=== PATIENT | female | born 1980 | race Caucasian/White ===

== ENCOUNTER → 2016-12-29 | Outpatient (REF) ==
[~2016-12-29] MED LIST: IBU600 MG PO; PERCOCET 325 MG1 TA2 PO
== END ==
LOC: WSOH 08:12
DX: Z02.89 Encounter for other administrative examinations (principal)

== ENCOUNTER 2017-03-19 16:50 | Emergency (ER) | payer BC ==
[~2017-03-19] VITALS: Ht 175.3 cm; Wt 59.1 kg
[2017-03-19 16:52] VITALS: BP 117/70; TEMP 99.1
[2017-03-19 19:13] VITALS: PULSE 66
== END 2017-03-19 19:14 | disposition home or self-care (01) ==
LOC: COL.ER 16:50
DX: G43.909 Migraine, unspecified, not intractable, without status migrainosus (principal)
CPT/HCPCS: J1100; J1200; J1885; J2550; J2765; J7030

== ENCOUNTER 2018-05-18 10:16 | Emergency (ER) | payer BC ==
[~2018-05-18] VITALS: Ht 175.3 cm; Wt 59.1 kg
[2018-05-18 10:50] VITALS: BP 115/59; TEMP 98.4
[2018-05-18 11:24] LABS: COLLECTION METHOD CLEAN CATCH
[2018-05-18 11:54] LABS: MUCOUS Present /lpf; URINE BACTERIA Rare /hpf; URINE RBC 0-2 /hpf
[2018-05-18 11:55] LABS: PH 6 (5-8); URINE APPEARANCE Hazy; URINE BILIRUBIN Negative (NEGATIVE); URINE BLOOD Negative (NEGATIVE); URINE COLOR Yellow; URINE GLUCOSE Negative (NEGATIVE); URINE KETONE Negative (NEGATIVE); URINE LEUKOCYTE ESTERASE Negative (NEGATIVE); URINE NITRATE Negative (NEGATIVE); URINE PROTEIN(semi-quant) Negative (NEGATIVE); URINE UROBILINOGEN Negative (NEGATIVE)
[2018-05-18 13:50] VITALS: PULSE 72
== END 2018-05-18 13:56 | disposition home or self-care (01) ==
LOC: COL.ER 10:16
PROVIDERS: Physician Assistant
DX: O21.9 Vomiting of pregnancy, unspecified (principal); O26.891 Other specified pregnancy related conditions, first trimester; E86.0 Dehydration; Z3A.11 11 weeks gestation of pregnancy
CPT/HCPCS: J2405; J7030

== ENCOUNTER 2018-11-28 16:51 | Inpatient (IN) | payer BC ==
[~2018-11-28] VITALS: Ht 175.3 cm; Wt 75.5 kg
[2018-11-28] VITALS (25 sets, daily range): BP systolic 80–129; BP diastolic 41–74; PULSE 71–130; TEMP 97.9–98.4
[2018-11-28] MEDS ORDERED: PRENATAL (17:10)
--- NOTE | 2018-11-28 17:35 | NUR ---
1700 PATIENT HERE WITH COMPLAINTS OF CONTRACTIONS GETTING STRONGER. SVE /-2 WITH VERY BULGY BAG. ASSESSMENT COMPLETED. DR WEEKS CALLED AND UPDATED AND ORDERS GIVEN TO ADMIT FOR LABOR AT THIS TIME. IV STARTED IN LEFT WRIST.
[2018-11-28 17:37] LABS: BASO % 0.4 % (0.0-2.0); EOS # 0.1 (0.0-0.7); EOS % 0.7 % (0-4.0); GRAN # 8.7 (1.4-6.5); GRAN % 78.1 % (42.2-75.2); HEMOGLOBIN 11.7 g/dl (12.5-16.0); LYMPH # 1.5 (1.2-3.4); LYMPH % 13.4 % (20.0-51.0); MEAN CELL VOLUME 87 fl (80.0-100.0); MEAN CORPUSCULAR HEMOGLOBIN 28 pg (27.0-31.0); MEAN CORPUSCULAR HGB CONC 32 g/dl (33.0-37.0); MEAN PLATELET VOLUME 10.4 fl (7.4-10.4); MONO # 0.8 (0.1-0.6); MONO % 6.9 % (1.7-9.3); PLATELET COUNT 286 K/mm3 (130-400); RED BLOOD COUNT 4.16 M/mm3 (4.10-5.30); REDCELL DISTRIBUTION WIDTH-CV 13.8 % (11.5-14.5)
[2018-11-28 17:38] LABS: HEMATOCRIT 36.1 % (37.0-47.0)
--- NOTE | 2018-11-28 20:00 | NUR ---
1814- Bedside report from DAKOTAH Hwang. Patient sitting at edge of bed, breathing heavily through contractions. Patient is requesting an epidural at this time. KALPESH Trejo contacted. 1824- EFM and TOCO on and tracing. IVF bolus started. 1829- KALPESH Trejo at bedside. Patient sitting upright on edge of bed for epidural placement. FHT tracing intermittently due to maternal position. 1839- Test Dose. See Anesthesia Record. 1844- at bedside. Patient complains of feeling lightheaded, dizzy, and seeing minimal color. Patient repositioned to laying down. BP low. 1847- Ephedrine given. See eMAR. 1849- SVE 7/-1 by . AROM. Moderate amount of clear, odorless fluid noted. 1901- Ephedrine given. See eMAR. 1906- Ephedrine given. See eMAR. 191- Castillo catheter inserted. 1944- SVE 7-/-1 by this RN. updated. Orders to start Pitocin at this time. 1954- Pitocin initiated at 2mU per protocol. 2009- Recurrent early decels noted on FHT strip. 2024- SVE 8/90/0 with well-applied baby. Patient repositioned to sitting upright in dawna-position.
--- NOTE | 2018-11-28 21:30 | NUR ---
2100- SVE Complete/+1. called for delivery. Patient and room prepped for delivery. Nursery RN, DAKOTAH Valdez notified. 2104- Castillo catheter removed. 2109- at bedside. 2114- Patient begins pushing with contractions. 2116- of viable baby boy. Cord clamped and cut. Cord blood obtained. Pitocin off. 1st degree perineal laceration repaired at this time. Pericare provided by . Fundal massage by . Bladder drained by . 2127- Spontaneous delivery of placenta. Pitocin infusing at 333 ml/hr. Fundus massaged to firm by . Pericare provided. Ice pack applied.
[2018-11-29] VITALS (7 sets, daily range): BP systolic 94–110; BP diastolic 50–64; PULSE 62–89; TEMP 97.5–98.7
--- NOTE | 2018-11-29 02:30 | NUR ---
Pt up to the bathroom with standby assist. Pt unable to void. Straight cath done. Pericare done. Pt transferred to room 216 ambulatory. Oriented to room, bed and call light within reach. Plan of care reviewed.
--- NOTE | 2018-11-29 09:14 | NUR ---
Initial visit attempt; Family resting, Blood Bank Calendar Control Clerk left card of congratulations for the of their son and information regarding the availability of spiritual care at [place].
[2018-11-30] MEDS ORDERED: PERCOCET 325 MG1 TA2 PO (08:22)
[2018-11-30] MEDS ORDERED: MOTRIN 800800 MG/TAB PO (08:22)
[2018-11-30 09:15] VITALS: BP 102/63; PULSE 97; TEMP 97.9
== END 2018-11-30 13:25 | disposition home or self-care (01) | DRG 807 ==
LOC: LDRO 16:51 → LDR 17:00 → OB 11-29
PROVIDERS: Obstetrics & Gynecology; ADMIT Obstetrics & Gynecology
PROC: 10E0XZZ Delivery of Products of Conception, External Approach (ICD-10-PCS; principal; 2018-11-28)
PROC: 0HQ9XZZ Repair Perineum Skin, External Approach (ICD-10-PCS; 2018-11-28)
DX: O70.0 First degree perineal laceration during delivery (principal); Z37.0 Single live birth; Z3A.39 39 weeks gestation of pregnancy; O26.893 Other specified pregnancy related conditions, third trimester; Z67.41 Type O blood, Rh negative; O99.02 Anemia complicating childbirth
CPT/HCPCS: J2791; J7120

== ENCOUNTER 2019-08-08 18:37 | Emergency (ER) | payer BC ==
[~2019-08-08] VITALS: Ht 175.3 cm; Wt 59.1 kg
[~2019-08-08 18:37] MED LIST changes: +MOTRIN 800800 MG/TAB PO; +PRENATAL
[2019-08-08 18:52] VITALS: BP 117/71; TEMP 98.6
[2019-08-08 21:10] VITALS: PULSE 70
== END 2019-08-08 21:13 | disposition home or self-care (01) ==
LOC: COL.ER 18:37
DX: G43.909 Migraine, unspecified, not intractable, without status migrainosus (principal)
CPT/HCPCS: J1200; J1885; J2765; J7030

== ENCOUNTER → 2020-04-21 | Outpatient (CLI) | payer BC | LOC: MC.RAD 07:30 | DX: Z12.31 Encounter for screening mammogram for malignant neoplasm of breast (principal) ==